=== PATIENT | male | born 1980 | race Caucasian/White ===

== ENCOUNTER → 2021-04-17 16:13 | Outpatient (BNVA) | payer SELFPAY | PROVIDERS: Visit Provider Nurse Practitioner Family | DX: L08.9 Local infection of the skin and subcutaneous tissue, unspecified (principal); L72.3 Sebaceous cyst | CPT/HCPCS: 87070; 87075; 87205 ==

== ENCOUNTER → 2023-05-21 11:00 | Outpatient (BNVA) | payer MEDICAID, SELFPAY | PROVIDERS: PCP Nurse Practitioner Family; Visit Provider Nurse Practitioner Family | DX: I10 Essential (primary) hypertension (principal) | CPT/HCPCS: 80053; 80061; 84443; 85025 ==

== ENCOUNTER 2023-08-27 08:17 | Day surgery (SDC) | payer OTHER, SELFPAY ==
[2023-08-27] VITALS (12 sets, daily range): BP systolic 102–133; BP diastolic 54–84; PULSE 60–104; RESP 10–18; TEMP 36.3–36.9; O2SAT 94–99; BMI 26.4
--- NOTE | 2023-08-27 08:47 | W.PM.OPSUD ---
Surgery/Procedure H&P Update DATE OF PROCEDURE: August 27, 2023 DATE H&P PERFORMED: 08/20/23 H&P UPDATE INFORMATION: I have reviewed H&P completed within last 30 days, I have examined patient prior to procedure and No changes to prior documentation PLANNED PROCEDURE: Operation Date: 08/27/23 10:00 Proposed Procedures p 67341 lap right inguinal hernia repair with mesh k40.90(Right) - Gregory Shearer, DO
[2023-08-27] MEDS: sodium chloride 0.9% 1,000 ML 30 ML IV (09:06)
[2023-08-27] MEDS: vancomycin 1,500 MG/300 ML PIGGYBACK 200 MG IV (09:11)
--- NOTE | 2023-08-27 09:55 | ANES.PREANE2 ---
Pre-Anesthetic Assessment Height/Weight: Height 1.65 m Weight 72 kg Temp Pulse Resp BP Pulse Ox O2 Del Method 97.5 F L 60 16 124/80 99 Room Air 08/27/23 08:39 08/27/23 08:39 08/27/23 08:39 08/27/23 08:39 08/27/23 08:39 08/27/23 08:50 Operation Date: 08/27/23 10:00 Proposed Procedures p 83922 lap right inguinal hernia repair with mesh k40.90(Right) - Gregory Shearer DO Last intake: Intake Last Liquid Date 08/26/23 Last Liquid Time 23:50 Last Solid Date 08/26/23 Last Solid Time 23:00 Social No alcohol and No tobacco Exam alert, oriented x 3, clear to auscultation bilaterally and regular rate & rhythm Airway Submandibular: within normal limits Cervical ROM: within normal limits Mallampati: Class I CV/HEM None reported Hepatic None reported GI None reported Metabolic None reported Musc/skel None reported Neuropsych None reported Anesthetic Plan ASA status: 1 Anesthesia: Anesthesia Evaluation and General Risk of > 500 ml blood loss (7ml/kg in children): Yes, adequate IV access and fluids planned Medications/Allergies Home Medications Medication Instructions Recorded Confirmed Last Taken Type No Known Home Medications 08/13/23 08/26/23 Unknown History Allergies Allergy/AdvReac Type Severity Reaction Status Date / Time [place] nut Allergy ALGY-Anaphy Verified 08/26/23 14:50 laxis Penicillins Allergy Unknown Verified 08/26/23 14:50 Current Medications Generic Name Dose Route Start Last Admin Trade Name Freq PRN Reason Stop Dose Admin Sodium Chloride 1,000 mls @ 30 mls/hr 08/27/23 08:30 08/27/23 09:06 Sodium Chloride 0.9% IV 08/28/23 08:29 30 mls/hr .Q24H YESY Administration PFSH Anesthesia Medical History No pertinent past medical history Surgical History History of hand surgery right hand; around 2007 Family History Family/Other Cancer Diabetes Denies family history of Clotting disorder Psychiatric illness Bleeding disorder Stroke Social History Second hand smoke exposure: No Alcohol intake: current Alcohol intake frequency: few times a week Alcohol type: beer, wine and hard liquor Substance/Drug Use: current Substance/Drug use frequency: daily Caregiver/support person: Yes (girlfriend) Lives independently: Yes Household members: none Marital status: Single service: No Current occupational status: retired Current gender identity: Male Special rocky needs: No Data Anesthesia Cardiac Studies: No Data to Display
[2023-08-27] MEDS: lidocaine-epi 2% 20 mL INJ INJECTION (10:00)
--- NOTE | 2023-08-27 10:11 | PM.OP ---
Operative Report Date of procedure: August 27, 2023 Pre-op diagnosis: Right inguinal hernia Post-op diagnosis: Right indirect inguinal hernia Procedure done: Laparoscopic (TEPP) repair of right inguinal hernia with mesh Implants: Extra-large right 3D max Bard mesh Specimens removed/disposition: Hernia sac Surgeon: Gregory Shearer DO Anesthesia: General Estimated blood loss (mL): 5 Complications: None apparent Brief History: This very pleasant 43-year-old gentleman who presented biopsy right inguinal hernia. Laparoscopic repair with mesh was indicated. The risk benefits were explained and documented. Procedure: Patient was wheeled into the operative room and placed on the OR table in a supine position. Abdomen was inspected prepped and draped in usual sterile fashion. Time-out was performed and all present were in agreement. A 15 blade scalpel was used to make 1.2 centimeter incision infraumbilically. Combination of sharp and blunt dissection was performed down to the anterior rectus sheath which was opened sharply. The dissecting balloon was then inserted into the space of Retzius and blown up. We put the camera into the port and identified that we were in the correct space. I then placed 2 5 millimeter trocars suprapubically in the midline. I then used endokitners to bluntly dissect in the space of Retzius out laterally. An indirect inguinal hernia was identified on the right. Blunt dissection was performed to dissect down the hernia sac until the vas deferens dove medially. Part of the hernia sac was removed and sent to pathology. An extra-large right inguinal mesh was then placed into the space of Retzius. The mesh was unrolled and tacked once medially at the pubic bone. The mesh laid out nicely over the spermatic cord. I watched the hernia sac remained in place over the mesh as insufflation was removed. Incisions were closed with 4-0 Monocryl in a subcuticular interrupted fashion. Skin glue was applied. Patient tolerated the procedure well.
[2023-08-27] MEDS: meperidine 50 mg/mL INJ 12.5 MG IVP (10:35)
--- NOTE | 2023-08-27 14:17 | ANE.PACU2 ---
Inpatient post-anesthesia follow up: Airway intact: Yes Vital signs: Temperature 97.4 F Pulse Rate 86 Respiratory Rate 18 Blood Pressure 109/70 Pulse Oximetry 99 Oxygen Delivery Me thod Room Air Oxygen Flow Rate Fraction of Inspir ed Oxygen Hydration adequate: Yes Nausea and vomiting: No Pain level: 2 Mental status: Baseline
== END 2023-08-27 11:38 | disposition home or self-care (01) ==
PROVIDERS: PCP Nurse Practitioner Family; Visit Provider Surgery
PROC: (CPT 49650; principal; 2023-08-27 09:50)
DX: K40.90 Unilateral inguinal hernia, without obstruction or gangrene, not specified as recurrent (principal)
CPT/HCPCS: 49650; 51702; 88302; C1781; J1885; J2175; J2250; J2405; J2704; J2710; J3010; J3370; J3490; J7030

== ENCOUNTER 2023-09-30 10:47 | Day surgery (SDC) | payer MEDICAID, SELFPAY ==
[2023-09-30 11:40] VITALS: BMI 25.2
[2023-09-30 11:45] VITALS: BP 132/89; PULSE 66; RESP 18; TEMP 36.1; O2SAT 100
[2023-09-30] MEDS: sodium chloride 0.9% 1,000 ML 30 ML IV (11:47)
--- NOTE | 2023-09-30 13:00 | ANES.PREANE2 ---
Pre-Anesthetic Assessment Height/Weight: Height 1.65 m Weight 68.946 kg Preop Diagnosis: screening Operation Date: 09/30/23 13:00 Proposed Procedures p [id number] colon G0105 screen colon High risk z12.11,Z80.0(Not Applicable) - Gregory Shearer DO Was Beta Christal taken within 24 hours: N/A Was Clonidine taken within 24 hours: N/A Last intake: Intake Last Liquid Date 09/30/23 Last Liquid Time 09:30 Last Solid Date 09/28/23 Last Solid Time 20:00 Social Alcohol (3-5 times a week) Marijuana 1 gram a day Exam alert and oriented x 3 Airway Submandibular: within normal limits Cervical ROM: within normal limits Mallampati: Class II Dentition: full History/ROS No significant history except as noted Pulmonary None reported CV/HEM None reported None reported Hepatic None reported GI None reported Metabolic None reported Musc/skel None reported Neuropsych None reported Anesthetic Plan ASA status: 2 Anesthesia: MAC Risk of > 500 ml blood loss (7ml/kg in children): No Medications/Allergies Home Medications Medication Instructions Recorded Confirmed Last Taken Type No Known Home Medications 09/28/23 09/29/23 Unknown History Allergies Allergy/AdvReac Type Severity Reaction Status Date / Time [place] nut Allergy ALGY-Anaphy Verified 09/29/23 13:13 laxis Penicillins Allergy Unknown Verified 09/29/23 13:13 Current Medications Generic Name Dose Route Start Last Admin Trade Name Freq PRN Reason Stop Dose Admin Sodium Chloride 1,000 mls @ 30 mls/hr 09/30/23 11:45 09/30/23 11:47 Sodium Chloride 0.9% IV 10/01/23 11:44 30 mls/hr .Q24H YESY Administration PFSH Anesthesia Medical History (Updated 09/09/23 @ 14:17 by Gregory Shearer DO) Family history of colon cancer No pertinent past medical history Surgical History (Updated 09/09/23 @ 14:17 by Gregory Shearer DO) S/P right inguinal hernia repair History of hand surgery right hand; around 2007 Family History Family/Other Cancer Diabetes Denies family history of Clotting disorder Psychiatric illness Bleeding disorder Stroke Social History Second hand smoke exposure: No Alcohol intake: current Alcohol intake frequency: few times a week Alcohol type: beer, wine and hard liquor Substance/Drug Use: current Substance/Drug use frequency: daily Caregiver/support person: Yes (girlfriend) Lives independently: Yes Household members: none Marital status: Single service: No Current occupational status: retired Current gender identity: Male Special rocky needs: No Data Anesthesia Cardiac Studies: No Data to Display
--- NOTE | 2023-09-30 13:58 | W.PM.OPSUD ---
Surgery/Procedure H&P Update DATE OF PROCEDURE: September 30, 2023 DATE H&P PERFORMED: 09/09/23 H&P UPDATE INFORMATION: I have reviewed H&P completed within last 30 days, I have examined patient prior to procedure and No changes to prior documentation PREOP DIAGNOSIS: screening PLANNED PROCEDURE: Operation Date: 09/30/23 13:00 Proposed Procedures p [id number] colon G0105 screen colon High risk z12.11,Z80.0(Not Applicable) - Gregory Shearer DO
[2023-09-30 14:15] VITALS: BP 101/61; PULSE 66; RESP 18; TEMP 36.1; O2SAT 97
[2023-09-30 14:27] VITALS: BP 121/80; PULSE 69; RESP 18; O2SAT 100
--- NOTE | 2023-09-30 14:53 | ANE.PACU2 ---
Inpatient post-anesthesia follow up: Airway intact: Yes Vital signs: Temperature 97 F Pulse Rate 69 Respiratory Rate 18 Blood Pressure 121/80 Pulse Oximetry 100 Oxygen Delivery Me thod Room Air Oxygen Flow Rate Fraction of Inspir ed Oxygen Hydration adequate: Yes Nausea and vomiting: No Pain level: 2 Mental status: Baseline
== END 2023-09-30 14:34 | disposition home or self-care (01) ==
PROVIDERS: PCP Nurse Practitioner Family; Visit Provider Surgery
PROC: 0DJD8ZZ Inspection of Lower Intestinal Tract, Via Natural or Artificial Opening Endoscopic (ICD-10-PCS; CPT 45378; principal; 2023-09-30 13:00)
DX: Z12.11 Encounter for screening for malignant neoplasm of colon (principal); Z80.0 Family history of malignant neoplasm of digestive organs
CPT/HCPCS: 45378; J2704; J3010; J7030